=== PATIENT | female | born 1950 | race Caucasian/White ===

== ENCOUNTER 2016-09-04 08:01 | Outpatient (CLI) | payer MEDICARE, OTHER ==
[2016-09-04 08:52] LABS: eGFR (African) > 60; eGFR (Non-African) > 60
== END 2016-09-04 08:02 ==
LOC: LAB 08:01
PROVIDERS: ATTEND Family Medicine
DX: E11.9 Type 2 diabetes mellitus without complications (principal)
CPT/HCPCS: 36415; 80053; 80061; 82043; 83036

== ENCOUNTER 2018-12-13 08:00 | Emergency (ER) | payer MEDICARE, OTHER ==
--- NOTE | 2018-12-13 08:19 | ED Physician Documentation ---
Low Back Pain - HISTORIAN Historian: patient - HPI Stated Complaint: low back pain Chief Complaint: Low Back Pain/ Injury Additional Information: Patient presents to ED with low back pain x 1 week. Patient states last Wed she was carrying a heavy box, stepped up on a step, twisted to one side, heard a pop in her low back. Since that time she has had worsening low back pain. She states this morning she had difficulty getting out of bed due to the pain. Patient states she has difficulty getting comfortable standing, sitting or laying down. Onset: days ago (7) Duration: continues in ED Recent Injury: Yes Context: lifting Where: home Other Injuries: back Severity: moderate Quality: sharp Associated Symptoms: denies: fever, nausea, vomiting, difficulty walking Worsened By:: supine, upright position Relieved By: nothing - ROS CONST: denies: weakness CVS/RESP: denies: chest pain, shortness of breath EYES/ENT: denies: problems with vision MS/SKIN/LYMPH: back pain. denies: calf pain, leg pain Neuro/Psych: denies: headache GI/: denies: abdominal pain - PAST HX Past History: denies: back injury, back pain, compression fracture(s) Surgeries/Procedures: hysterectomy, Allergies/Adverse Reactions: Allergies Allergy/AdvReac Type Severity Reaction Status Date / Time penicillin G Allergy Verified 12/13/18 08:19 Sulfa (Sulfonamide Allergy Verified 12/13/18 08:19 Antibiotics) Home Medications: Ambulatory Orders Medication Instructions Recorded Baclofen 10 mg PO BID PRN #20 tablet 12/13/18 predniSONE [Deltasone] 20 mg PO DIRECTED #6 tablet 12/13/18 - SOCIAL HX Smoking History: non-smoker Alcohol Use: none Drug Use: none - FAMILY HX Family History: none - VITAL SIGNS Vital Signs: Vital Signs Temp Pulse Resp BP Pulse Ox 98.1 F 68 14 131/55 98 12/13/18 08:05 12/13/18 08:05 12/13/18 08:05 12/13/18 08:05 12/13/18 08:05 - REVIEWED ASSESSMENTS Nursing Assessment Reviewed: Yes Vitals Reviewed: Yes ED Results Lab/Radiology - Radiology Radiology Impressions: Report Submission Date: Dec 13, 2018 8:55:19 AM CDT Patient Study Name: EFE KEITH Date: Dec 13, 2018 8:09:58 AM CDT Modality Type: DX Gender: F Description: L SPINE 2 OR 3 VIEWS : 46 Institution: [facility] Physician: QUOC WESTBROOK Examination: Plain film lumbar spine History: LOW BACK PAIN S/P LIFTING HEAVY OBJECT X 1 WEEK AGO Findings: 3 views of the lumbar spine demonstrates osteopenia. Osteophyte formation. No anterior compression deformity. Lower thoracic/upper lumbar disc space narrowing. L4/L5 listhesis. Facet degenerative changes. Vascular calcifications. Impression: Osteopenia and degenerative changes. No vertebral body compression deformity. Electronically signed on Dec 13, 2018 8:55:19 AM CDT by: George Carcamo - Orders Orders: ED Orders Category Date Time Status L SPINE 2 OR 3 VIEWS [RAD] Stat Exams 12/13/18 Taken Ketorolac Tromethamine [Toradol] Med 12/13/18 08:52 Discontinued 30 mg IM NOW ONE Low Back Pain/Injury - Physical Exam General Appearance: no acute distress, alert EENT: MEGAN Neck: non-tender, painless ROM Resp/CVS: chest non-tender, breath sounds nml, heart sounds nml Abdomen: non-tender Back: vertebral point-tendernes (L2-L3), muscle spasm (over right posterior iliac crest ) Straight Leg Raising: Negative Left, Negative Right Neuro/Psych: oriented x3, motor nml, reflexes nml Skin: warm/dry Extremities: non-tender, no edema Discharge Clincal Impression: Low back pain Qualifiers: Chronicity: acute Back pain laterality: midline Sciatica presence: without sciatica Qualified Code(s): M54.5 - Low back pain Prescriptions: Baclofen 10 mg PO BID PRN #20 tablet PRN Reason: back pain/muscle spasm predniSONE [Deltasone] 20 mg PO DIRECTED #6 tablet Referrals: Donnie Spaulding MD [Primary Care Provider] - 2 Days Additional Instructions: 1. Take Prednisone until gone 2. Take Baclofen every 12 hours as needed for pain/muscle spasm 3. Tylenol as needed for pain 4. Apply ice or heat to affected area as needed for comfort 5. Apply over the counter lidocaine patches, biofreeze, aspercreme or icyhot has needed 6. Follow up with PCP within 1 week 7. Return to ER for new or worsening symptoms Condition: Stable Disposition: 01 HOME, SELF-CARE Decision to Admit: NO Date of Decison to Admit: 12/13/18 Decision Time: 09:04
[2018-12-13] MEDS: KETOROLAC TROMETHAMINE 30 MG/1ML VIAL IM ONE (08:58)
[2018-12-13 09:08] VITALS: BP 140/55
--- NOTE | 2018-12-13 09:29 | Diagnostic Imaging Report ---
QUOC WESTBR[facility] [id number] [facility] [address] [id number] Report Submission Date: Dec 13, 2018 8:55:19 AM CDT Patient Study Name: EFE KEITH Date: Dec 13, 2018 8:09:58 AM CDT Modality Type: DX Gender: F Description: L SPINE 2 OR 3 VIEWS : 46 Institution: [facility] Physician: QUOC WESTBROOK Examination: Plain film lumbar spine History: LOW BACK PAIN S/P LIFTING HEAVY OBJECT X 1 WEEK AGO Findings: 3 views of the lumbar spine demonstrates osteopenia. Osteophyte formation. No anterior compression deformity. Lower thoracic/upper lumbar disc space narrowing. L4/L5 listhesis. Facet degenerative changes. Vascular calcifications. Impression: Osteopenia and degenerative changes. No vertebral body compression deformity. Electronically signed on Dec 13, 2018 8:55:19 AM CDT by: George CONNER
== END 2018-12-13 09:15 | disposition home or self-care (01) ==
LOC: ED 08:00
DX: M54.5 Low back pain (principal)
CPT/HCPCS: 72100; 96372; 99283; 99284; J1885